=== PATIENT | female | born 1990 | race Caucasian/White ===

== ENCOUNTER 2022-07-03 15:43 | Outpatient (REF) | payer MEDICAID, SELFPAY ==
[2022-07-03 16:28] LABS: COVID-19 Test Negative (Negative); IDNOW Serial# BCCEAD1C
== END 2022-07-03 15:44 | disposition home or self-care (01) ==
LOC: HO.LAB 15:43
PROVIDERS: Visit Provider Internal Medicine
DX: Z20.822 Contact with and (suspected) exposure to COVID-19 (principal)
CPT/HCPCS: 87635; C9803

== ENCOUNTER 2022-07-12 13:18 | Outpatient (REF) | payer MEDICAID, SELFPAY ==
[2022-07-12 13:57] LABS: COVID-19 Test Negative (Negative); IDNOW Serial# 16C4AD1C
== END 2022-07-12 13:19 | disposition home or self-care (01) ==
LOC: HO.LAB 13:18
PROVIDERS: Visit Provider Internal Medicine
DX: Z20.822 Contact with and (suspected) exposure to COVID-19 (principal)
CPT/HCPCS: 87635; C9803

== ENCOUNTER 2022-07-20 11:15 | Outpatient (REF) | payer MEDICAID, SELFPAY ==
[2022-07-20 12:37] LABS: COVID-19 Test Negative (Negative); IDNOW Serial# 55D5AD1C
== END 2022-07-20 11:16 | disposition home or self-care (01) ==
LOC: HO.LAB 11:15
PROVIDERS: Visit Provider Internal Medicine
DX: Z20.822 Contact with and (suspected) exposure to COVID-19 (principal)
CPT/HCPCS: 87635; C9803

== ENCOUNTER 2022-08-10 12:30 | Outpatient (REF) | payer OTHER, SELFPAY ==
[2022-08-10 13:12] LABS: COVID-19 Test Negative (Negative); IDNOW Serial# 9DB6401D
== END 2022-08-10 12:31 | disposition home or self-care (01) ==
LOC: HO.LAB 12:30
PROVIDERS: Visit Provider Internal Medicine
DX: Z20.822 Contact with and (suspected) exposure to COVID-19 (principal)
CPT/HCPCS: 87635; C9803